=== PATIENT | male | born 2000 | race Caucasian/White ===

== ENCOUNTER 2019-11-13 12:58 | Emergency (ER) | payer OTHER, SELFPAY ==
[2019-11-13 13:10] VITALS: BMI 22.8
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
[2019-11-13 13:14] VITALS: BP 130/80; PULSE 86; RESP 20; TEMP 37; O2SAT 97
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
== END 2019-11-13 14:35 | disposition home or self-care (01) ==
PROVIDERS: Emergency Provider Emergency Medicine
DX: S90.32XA Contusion of left foot, initial encounter (principal); V09.20XA Pedestrian injured in traffic accident involving unspecified motor vehicles, initial encounter
CPT/HCPCS: 73630; 99283